=== PATIENT | female | born 1950 | race Caucasian/White ===

== ENCOUNTER → 2017-12-30 12:55 | Outpatient (CLI) | payer MEDICARE, OTHER, SELFPAY ==
--- NOTE | 2017-12-30 | DI.MG.S_ITS ---
BILATERAL DIGITAL SCREENING MAMMOGRAM 3D/2D WITH CAD: 12/30/2017 CLINICAL: Routine screening. Family history of breast cancer. Comparison is made to exams dated: 12/16/2016 mammogram, 12/16/2015 mammogram, and 12/13/2014 mammogram - [facility]. There are scattered fibroglandular elements in both breasts. Current study was also evaluated with a Computer Aided Detection (CAD) system. No significant masses, calcifications, or other findings are seen in either breast. There has been no significant interval change. IMPRESSION: NEGATIVE There is no mammographic evidence of malignancy. A 1 year screening mammogram is recommended. This exam was interpreted at Station ID: [id number]. NOTE: For mammograms, a report in lay terms will be sent to the patient. Approximately 15% of breast malignancies will not be visualized mammographically. In the management of a palpable breast mass, a negative mammogram must not discourage biopsy of a clinically suspicious lesion. Electronically Signed By: Ivy shannon/celena:12/30/2017 13:39:39 copy to: Stephon Gómez letter sent: Normal Exam ACR BI-RADS Category 1: Negative 3341F
== END ==
PROVIDERS: PCP Family Medicine; Visit Provider Family Medicine
DX: Z12.31 Encounter for screening mammogram for malignant neoplasm of breast (principal); Z80.3 Family history of malignant neoplasm of breast
CPT/HCPCS: 77063; 77067

== ENCOUNTER → 2018-01-23 09:00 | Outpatient (CLI) | payer MEDICARE, OTHER, SELFPAY ==
--- NOTE | 2018-01-23 09:02 | DI.US.S_ITS ---
PROCEDURE: US EXTREMITY NONVASC LOWER RT INDICATIONS: palpable mass right upper thigh TECHNIQUE: Real-time scanning was performed of the right proximal thigh, with image documentation. COMPARISON: None. FINDINGS: 1.1 x 0.4 x 1.7 cm subcutaneous, rounded avascular echogenic soft tissue mass present corresponding to the palpable abnormality. IMPRESSION: Solid subcutaneous echogenic mass within the soft tissues corresponding to the palpable abnormality which may represent a lipoma given the appearance but findings are nonspecific and differential would include both benign or malignant etiology. Recommend clinical correlation and followup. Dictated by: Reed DIMAS Interpreted: Galindo Tidwell MD on 01/23/2018 at 9:47 Approved by: Galindo Tidwell M.D. on 01/23/2018 at 15:16
== END ==
PROVIDERS: PCP Family Medicine; Visit Provider Family Medicine
DX: R22.41 Localized swelling, mass and lump, right lower limb (principal)
CPT/HCPCS: 76882

== ENCOUNTER → 2018-12-29 09:46 | Outpatient (CLI) | payer MEDICARE, OTHER, SELFPAY ==
[2018-12-29 11:03] LABS: HEMOLYSIS < 15 (0-50); Iron 117 ug/dL (37-170)
[2018-12-29 11:17] LABS: Percent Iron Saturation 40 % (15-50); Total Iron Binding Capacity 295 ug/dL (265-497); Transferrin 236 mg/dL (206-381)
[2018-12-29 11:18] LABS: Vitamin D 25 Hydroxy (D3) 31.9 ng/mL (30.0-100.0)
[2018-12-29 11:29] LABS: Cholesterol 233 mg/dL (140-199); Glucose 90 mg/dL (80-110); HDL Cholesterol 70 mg/dL (40-60); LDL Cholesterol Calculated 139 mg/dL (<100); Triglycerides 122 mg/dL (35-150)
== END ==
PROVIDERS: PCP Family Medicine; Visit Provider Family Medicine
DX: E55.9 Vitamin D deficiency, unspecified (principal); E61.1 Iron deficiency; Z13.1 Encounter for screening for diabetes mellitus; Z13.220 Encounter for screening for lipoid disorders
CPT/HCPCS: 36415; 80061; 82306; 82947; 83540; 83550

== ENCOUNTER → 2019-02-01 09:53 | Outpatient (CLI) | payer MEDICARE, OTHER, SELFPAY ==
--- NOTE | 2019-02-01 | DI.MG.S_ITS ---
BILATERAL DIGITAL SCREENING MAMMOGRAM 3D/2D WITH CAD: 02/01/2019 CLINICAL: Routine screening. Family history of breast cancer. Comparison is made to exams dated: 12/30/2017 mammogram, 12/16/2016 mammogram, and 12/16/2015 mammogram - [facility]. There are scattered fibroglandular elements in both breasts. Current study was also evaluated with a Computer Aided Detection (CAD) system. No significant masses, calcifications, or other findings are seen in either breast. There has been no significant interval change. IMPRESSION: NEGATIVE There is no mammographic evidence of malignancy. A 1 year screening mammogram is recommended. This exam was interpreted at Station ID: [id number]. NOTE: For mammograms, a report in lay terms will be sent to the patient. Approximately 15% of breast malignancies will not be visualized mammographically. In the management of a palpable breast mass, a negative mammogram must not discourage biopsy of a clinically suspicious lesion. Electronically Signed By: Ivy shannon/celena:02/01/2019 12:07:35 copy to: Stephon Gómez letter sent: Normal Exam ACR BI-RADS Category 1: Negative 3341F
== END ==
PROVIDERS: PCP Family Medicine; Visit Provider Family Medicine
DX: Z12.31 Encounter for screening mammogram for malignant neoplasm of breast (principal); Z80.3 Family history of malignant neoplasm of breast
CPT/HCPCS: 77063; 77067

== ENCOUNTER → 2020-07-03 08:25 | Outpatient (CLI) | payer MEDICARE, OTHER, SELFPAY ==
[2020-07-03 10:21] LABS: Cholesterol 237 mg/dL (140-199); Glucose 87 mg/dL (80-110); HDL Cholesterol 79 mg/dL (40-60); LDL Cholesterol Calculated 139 mg/dL (<100); Triglycerides 96 mg/dL (35-150)
== END ==
PROVIDERS: PCP Family Medicine; Referring Provider Family Medicine; Visit Provider Family Medicine
DX: E78.00 Pure hypercholesterolemia, unspecified (principal); Z13.1 Encounter for screening for diabetes mellitus
CPT/HCPCS: 36415; 80061; 82947

== ENCOUNTER → 2020-07-15 08:58 | Outpatient (CLI) | payer MEDICARE, OTHER, SELFPAY | PROVIDERS: PCP Family Medicine; Referring Provider Obstetrics & Gynecology; Visit Provider Obstetrics & Gynecology | DX: Z80.3 Family history of malignant neoplasm of breast (principal) | CPT/HCPCS: 36415 ==

== ENCOUNTER → 2020-08-14 16:23 | Outpatient (CLI) | payer MEDICARE, OTHER, SELFPAY ==
--- NOTE | 2020-08-14 16:25 | DI.MG.S_ITS ---
BILATERAL DIGITAL SCREENING MAMMOGRAM 3D/2D WITH CAD: 08/14/2020 CLINICAL: Routine screening. Family history of breast cancer. Comparison is made to exams dated: 02/01/2019 mammogram, 12/30/2017 mammogram, 12/16/2016 mammogram, and 12/16/2015 mammogram - [facility]. There are scattered fibroglandular elements in both breasts. Current study was also evaluated with a Computer Aided Detection (CAD) system. There are benign calcifications in both breasts. No significant masses, calcifications, or other findings are seen in either breast. There has been no significant interval change. IMPRESSION: BENIGN There is no mammographic evidence of malignancy. A 1 year screening mammogram is recommended. This exam was interpreted at Station ID: [id number]. NOTE: For mammograms, a report in lay terms will be sent to the patient. Approximately 15% of breast malignancies will not be visualized mammographically. In the management of a palpable breast mass, a negative mammogram must not discourage biopsy of a clinically suspicious lesion. Electronically Signed By: Martin heath/celena:08/14/2020 17:03:11 copy to: Stephon Gómez letter sent: Normal Exam ACR BI-RADS Category 2: Benign Finding(s) 3342F
== END ==
PROVIDERS: PCP Family Medicine; Referring Provider Family Medicine; Visit Provider Family Medicine
DX: Z12.31 Encounter for screening mammogram for malignant neoplasm of breast (principal); Z80.3 Family history of malignant neoplasm of breast
CPT/HCPCS: 77063; 77067

== ENCOUNTER → 2021-12-22 07:16 | Outpatient (CLI) | payer MEDICARE, OTHER, SELFPAY ==
[2021-12-22 08:15] LABS: Add Manual Diff / Slide Review NO; Basophils Absolute Auto 0 /uL (0-100); Basophils Percent Auto 0.8 % (0-2); Eosinophils Absolute Auto 200 /uL (0-450); Eosinophils Percent Auto 3.5 % (2-4); Hematocrit 38.9 % (36-46); Lymphocytes Absolute Auto 2000 /uL (1100-4500); Lymphocytes Percent Auto 36.7 % (25-40); Mean Corpuscular HGB Conc 33.5 % (30-36); Mean Corpuscular Hemoglobin 31.8 PG (26-34); Mean Corpuscular Volume 94.9 fL (80-100); Monocytes Absolute Auto 300 /uL (0-900); Monocytes Percent Auto 6.1 % (3-14); Neutrophils Absolute Auto 2800 /uL (1500-7000); Neutrophils Percent Auto 52.9 % (50-75); Platelet Count 314 X10^3/uL (150-400); Red Cell Distribution Width 13.8 % (11.6-14.8); White Blood Cell Count 5.4 X10^3/uL (4.5-11.0)
[2021-12-22 08:46] LABS: Alanine Aminotransferase 12 IU/L (<35); Albumin 4.3 g/dL (3.5-5.0); Albumin Globulin Ratio 1.8 (1.0-2.8); Alkaline Phosphatase 54 U/L (38-126); Aspartate Aminotransferase 24 IU/L (14-36); BUN Creatinine Ratio 21.6 (6-22); Bilirubin Total 1.1 mg/dL (0.2-1.3); Blood Urea Nitrogen 16 mg/dL (7-17); Calcium 9.7 mg/dL (8.4-10.2); Carbon Dioxide 31 mmol/L (22-32); Chloride 106 mmol/L (98-107); Cholesterol 230 mg/dL (140-199); Estimated Glomerular Filt Rate > 60 mL/min (>60); Globulin 2.4 g/dL (1.7-4.1); Glucose 82 mg/dL (80-110); HDL Cholesterol 99 mg/dL (40-60); HEMOLYSIS < 15 (0-50); LDL Cholesterol Calculated 115 mg/dL (<100); Potassium 4.7 mmol/L (3.4-5.1); Sodium 142 mmol/L (137-145); Total Protein 6.7 g/dL (6.3-8.2); Triglycerides 81 mg/dL (35-150)
[2021-12-22 08:58] LABS: Vitamin D 25 Hydroxy (D3) 44.8 ng/mL (30.0-100.0)
[2021-12-22 09:13] LABS: TSH w/ Reflex to FT4 3.59 uIU/mL (0.47-4.68)
[2021-12-22 09:29] LABS: Vitamin B12 853 pg/mL (239-931)
== END ==
PROVIDERS: PCP Family Medicine; Referring Provider Family Medicine; Visit Provider Family Medicine
DX: E78.5 Hyperlipidemia, unspecified (principal); M85.80 Other specified disorders of bone density and structure, unspecified site; E78.00 Pure hypercholesterolemia, unspecified
CPT/HCPCS: 36415; 80053; 80061; 82306; 82607; 84443; 85025

== ENCOUNTER → 2022-02-18 07:38 | Outpatient (CLI) | payer MEDICARE, OTHER, SELFPAY ==
--- NOTE | 2022-02-18 | DI.MG.S_ITS ---
BILATERAL DIGITAL SCREENING MAMMOGRAM 3D/2D WITH CAD: 02/18/2022 CLINICAL: Routine screening. Family history of breast cancer. Comparison is made to exams dated: 08/14/2020 mammogram, 02/01/2019 mammogram, and 12/30/2017 mammogram - [facility]. There are scattered fibroglandular elements in both breasts. Current study was also evaluated with a Computer Aided Detection (CAD) system. There is a possible developing an irregular equal density asymmetry with a spiculated margin and grouped fine calcifications in the left breast at 12 o'clock posterior depth. This is more prominent. No other significant masses, calcifications, or other findings are seen in either breast. IMPRESSION: INCOMPLETE: NEEDS ADDITIONAL IMAGING EVALUATION The possible developing irregular equal density asymmetry in the left breast is indeterminate. Additional views with possible ultrasound are recommended. Based on the Tyrer Cuzick model (a risk assessment model) the patient's lifetime risk is 7.1% and her 10 year risk is 5.3%. According to the ACR, ACS, and NCCN guidelines, an annual breast MRI exam along with mammogram is recommended if the patient's lifetime risk is 20% or greater. This exam was interpreted at Station ID: [id number]. NOTE: For mammograms, a report in lay terms will be sent to the patient. Approximately 15% of breast malignancies will not be visualized mammographically. In the management of a palpable breast mass, a negative mammogram must not discourage biopsy of a clinically suspicious lesion. Electronically Signed By: Kathrin smart/celena:02/18/2022 12:00:13 copy to: Stephon Gómez letter sent: Additional Imaging Needed ACR BI-RADS Category 0: Incomplete 3340F
== END ==
PROVIDERS: PCP Family Medicine; Referring Provider Family Medicine; Visit Provider Family Medicine
DX: Z12.31 Encounter for screening mammogram for malignant neoplasm of breast (principal); Z80.3 Family history of malignant neoplasm of breast
CPT/HCPCS: 77063; 77067

== ENCOUNTER → 2022-03-16 11:50 | Outpatient (CLI) | payer MEDICARE, OTHER, SELFPAY ==
--- NOTE | 2022-03-16 | DI.MG.S_ITS ---
UNILATERAL LEFT DIGITAL DIAGNOSTIC MAMMOGRAM 3D/2D WITH ADDITIONAL VIEWS: 03/16/2022 CLINICAL: Additional evaluation requested from prior study. Comparison is made to exams dated: 02/18/2022 mammogram, 08/14/2020 mammogram, 02/01/2019 mammogram, 12/30/2017 mammogram, and 12/27/2016 mammogram - [facility]. There are scattered fibroglandular elements in left breast. There is a possible asymmetry in the left breast at 12 o'clock posterior depth is not seen in additional views and is consistent with fibroglandular tissue. There also are loosely grouped punctate calcifications in the left breast at 12 o'clock middle depth which are stable since at least 2018. No other significant masses or calcifications are seen in the breast. IMPRESSION: BENIGN There is no mammographic evidence of malignancy. Asymmetry in the left breast at 12 o'clock posterior depth is consistent with fibroglandular tissue and is benign. Punctate calcifications in the left breast at 12 o'clock are long-term stable and benign. A 1 year screening mammogram is recommended. Exam findings were conveyed to the patient. Based on the Tyrer Cuzick model (a risk assessment model) the patient's lifetime risk is 7.1% and her 10 year risk is 5.3%. According to the ACR, ACS, and NCCN guidelines, an annual breast MRI exam along with mammogram is recommended if the patient's lifetime risk is 20% or greater. This exam was interpreted at Station ID: [id number]. NOTE: For mammograms, a report in lay terms will be sent to the patient. Approximately 15% of breast malignancies will not be visualized mammographically. In the management of a palpable breast mass, a negative mammogram must not discourage biopsy of a clinically suspicious lesion. Electronically Signed By: Martin Alvarado M.D. slc/:03/16/2022 12:30:13 copy to: Stephon Gómez letter sent: Normal Exam ACR BI-RADS Category 2: Benign Finding(s) 3342F
== END ==
PROVIDERS: PCP Family Medicine; Referring Provider Family Medicine; Visit Provider Family Medicine
DX: R92.1 Mammographic calcification found on diagnostic imaging of breast (principal); N64.89 Other specified disorders of breast
CPT/HCPCS: 77065; G0279

== ENCOUNTER → 2022-06-24 09:09 | Outpatient (CLI) | payer MEDICARE, OTHER, SELFPAY ==
[2022-06-24 13:28] LABS: COVID19 -Nasal RAPID Negative (Negative)
== END ==
PROVIDERS: PCP Family Medicine; Visit Provider Surgery
DX: Z20.822 Contact with and (suspected) exposure to COVID-19 (principal); Z01.812 Encounter for preprocedural laboratory examination
CPT/HCPCS: 87635; C9803

== ENCOUNTER 2022-06-25 06:36 | Day surgery (SDC) | payer MEDICARE, OTHER, SELFPAY ==
[2022-06-25 06:55] VITALS: BP 131/77; PULSE 75; RESP 16; TEMP 36.4; O2SAT 98; BMI 21.2
[2022-06-25] MEDS: LACTATED RINGERS 1,000 ML 84 ML IV (07:11)
--- NOTE | 2022-06-25 07:35 | PM.HP.1 ---
History of Present Illness History of Present Illness [place] [facility] [place]: Ms. Crouch presents today for a screening colonoscopy. Her last colonoscopy was probably about 6 years ago. It was here at [facility]. She said she they found polyps and recommended a 4 year follow-up. The records are not available for me to review at this time. She also states that she never heard back about the pathology of these polyps. She has no family history of colon cancer and denies constipation or bleeding. She does have ?diarrhea issues?. She is thinks that the diarrhea is mostly related to stress but sometimes foods and is fairly unpredictable. There will be times when months go by and she has no issues with diarrhea however when she is having a bad episode she will have diarrhea several times a week. This has been going on for years and her mother had this also. Patient History Medical History (Updated 06/25/22 @ 07:39 by Angeles Raya MD) Abnormal Pap smear of cervix Atypical squamous cell changes of undetermined significance (ASCUS) on cervical cytology with positive high risk human papilloma virus (HPV) (12/17/05) BCC (basal cell carcinoma), scalp/neck Chicken pox Colon polyps Eustachian tube dysfunction Generalized pain HPV (human papilloma virus) infection Hyperlipidemia Numbness of right foot Pelvic relaxation Rhinitis SCC (squamous cell carcinoma) Sigmoid diverticulitis Subcutaneous mass (01/20/18) Surgical History (Updated 03/28/18 @ 11:03 by Shannon Guzman) History of third molar tooth extraction History of tonsillectomy Status post tubal ligation Family & Social History Family History (Updated 03/28/18 @ 11:08 by Shannon Guzman) Mother Malignant neoplasm of female breast, unspecified laterality, unspecified site of breast Malignant melanoma Father No problems noted. Grandfather No problems noted. Grandfather No problems noted. Grandmother No problems noted. Sister No problems noted. Social History: household members family lives independently Yes caregiver/support person No Tobacco & Substance use: Smoking Status Never smoker alcohol intake current alcohol intake frequency a few times a month Substance Use Type does not use Meds Home Medications and Allergies Home Medications Medication Instructions Recorded Confirmed Type multivitamin 1 tab PO DAILY 03/07/18 02/16/22 History cyanocobalamin (vitamin B-12) PO 05/08/18 02/16/22 History ferrous sulfate [Iron (ferrous PO 05/08/18 02/16/22 History sulfate)] vit C-vit [id number]-3 PO 05/08/18 02/16/22 History [Ocuvite] salmon oil-omega-3 fatty acids PO 05/08/19 02/16/22 History CMP Estradiol vaginal cream See Rx Instructions .Route 04/15/22 Rx .COMPLEX #30 grams sodium,potassium,mag sulfates 17.5 See Rx Instructions PO .COMPLEX 04/29/22 Rx gram-3.13 gram-1.6 gram oral soln #354 mL (Suprep Bowel Prep Kit) Allergies Allergy/AdvReac Type Severity Reaction Status Date / Time No Known Drug Allergies Allergy Verified 06/25/22 06:52 Exam Vital Signs (past 8 hours): - 06/25/22 06:55 Temperature 97.6 F Pulse Rate 75 Respiratory Rate 16 Blood Pressure 131/77 Pulse Oximetry 98 Oxygen Delivery Method Room Air Oxygen Delivery Method Room Air Const General: cooperative, healthy appearing and comfortable HENMT Head: normal to inspection Resp Effort & Inspection: normal respiratory effort and able to speak in complete sentences Cardio Pulses: radial pulses present GI Palpation: soft and No tender Extrem Other: Very long but healthy looking and normally moving limbs Assessment & Plan Assessment and plan (1) Screen for colon cancer: Status: Acute Assessment & Plan narrative: I discussed the risks benefits and alternatives of screening colonoscopy with Ms. Milton at length. She had some questions about the fecal occult blood test and about polyps and follow-up. Her questions were answered and she understands the risks and benefits of colonoscopy and would like to move forward. She did ask in addition that if as happened previously she has diarrhea for weeks after this procedure what medications she could take for that. I discussed fiber and the use of Imodium as needed but not as a daily medication. I advised her to call the office with any questions or concerns after the procedure as well. Time Spent With Patient Critical Care time: I spent a total of [] minutes of critical care time on this patient's care today; this time is exclusive of procedural time.
--- NOTE | 2022-06-25 08:24 | PM.OP.1 ---
Procedure & Clinicians Procedure: Colonoscopy Same procedure as scheduled: Yes Indications: Screening Surgeon: Angeles Raya Click Yes if Unassisted: Yes Anesthesia Type: MAC +/- Operative Notes Findings: Scattered few diverticula no polyps seen. Specimen(s): none sent Procedure in detail: Patient was taken to the endoscopy suite and placed in left lateral decubitus position time-out was performed with the help of anesthesia provider conscious sedation was induced digital rectal exam was performed there were some external skin tags noted on the rectal exam. The colonoscope was advanced through to the cecum and withdrawn. The withdrawal time was 20 minutes. There was an issue with the suction becoming clogged during the case that added about 10 minutes to that withdrawal time. This was resolved the prep was [employer] bowel prep 2 there were some particulates and there was a lot of watery content within the colon, consistent with the patient's history of diarrhea. Complications: none Post-operative Condition: stable Disposition: PACU Plan for aftercare: Follow-up colonoscopy 10 years unless there is a change in her family history or in any symptoms.
[2022-06-25 08:26] VITALS: BP 101/59; PULSE 68; RESP 16; TEMP 36.4; O2SAT 100
[2022-06-25 08:34] VITALS: BP 94/65; PULSE 68; RESP 16; O2SAT 99
[2022-06-25 08:42] VITALS: BP 105/66; PULSE 68; RESP 16; TEMP 36.8; O2SAT 98
== END 2022-06-25 09:13 | disposition home or self-care (01) ==
PROVIDERS: PCP Family Medicine; Referring Provider Surgery; Visit Provider Surgery
PROC: 0DJD8ZZ Inspection of Lower Intestinal Tract, Via Natural or Artificial Opening Endoscopic (ICD-10-PCS; CPT 45378; principal; 2022-06-25 07:45)
DX: Z12.11 Encounter for screening for malignant neoplasm of colon (principal); K57.30 Diverticulosis of large intestine without perforation or abscess without bleeding
CPT/HCPCS: G0121; 45378; J2704

== ENCOUNTER → 2022-12-09 10:31 | Outpatient (CLI) | payer MEDICARE, OTHER, SELFPAY ==
--- NOTE | 2022-12-09 10:32 | DI.RAD.S_ITS ---
PROCEDURE: XR CHEST 2V INDICATIONS: cough 10 days, chills, mele travel adventitious LS LL TECHNIQUE: 2 views of the chest were acquired. COMPARISON: None. FINDINGS: Surgical changes and devices: None. Lungs and pleura: Focal airspace opacities are present at the posterior lung base visualized on the lateral view. No pleural effusion or pneumothorax. Mediastinum: Mediastinal contours are normal. Heart size is normal. Bones and chest wall: No suspicious bony abnormalities. Soft tissues appear unremarkable. IMPRESSION: Basilar pulmonary radiopacities suspicious for aspiration/infection. Follow-up to resolution recommended. Dictated by: Ivy Hernandez M.D. on 12/09/2022 at 11:11 Approved by: Ivy Hernandez M.D. on 12/09/2022 at 11:12
== END ==
PROVIDERS: PCP Family Medicine; Referring Provider Student in an Organized Health Care Education/Training Program; Visit Provider Student in an Organized Health Care Education/Training Program
DX: R05.8 Other specified cough (principal); R52 Pain, unspecified; R68.83 Chills (without fever)
CPT/HCPCS: 71046

== ENCOUNTER → 2022-12-24 13:09 | Outpatient (CLI) | payer MEDICARE, OTHER, SELFPAY ==
--- NOTE | 2022-12-24 13:10 | DI.RAD.S_ITS ---
PROCEDURE: XR CHEST 2V INDICATIONS: Pneumonia follow up TECHNIQUE: 2 views of the chest were acquired. COMPARISON: [facility], CR, XR CHEST 2V, 12/09/2022, 10:35. FINDINGS: Surgical changes and devices: None. Lungs and pleura: Lungs are clear. No pleural effusions or pneumothorax. Mediastinum: Mildly tortuous thoracic aorta is seen. Heart size is mildly enlarged. Bones and chest wall: No suspicious bony abnormalities. Soft tissues appear unremarkable. IMPRESSION: No acute cardiopulmonary pathology. Previously noted bibasilar pulmonary opacities are no longer seen suggestive of interval resolution. Dictated by: Efrain Ramos M.D. on 12/24/2022 at 15:51 Approved by: Efrain Ramos M.D. on 12/24/2022 at 15:51
== END ==
PROVIDERS: PCP Family Medicine; Referring Provider Physician Assistant; Visit Provider Physician Assistant
DX: H66.91 Otitis media, unspecified, right ear (principal); H74.8X9 Other specified disorders of middle ear and mastoid, unspecified ear; J18.9 Pneumonia, unspecified organism
CPT/HCPCS: 71046

== ENCOUNTER → 2023-03-14 12:51 | Outpatient (CLI) | payer MEDICARE, OTHER, SELFPAY ==
--- NOTE | 2023-03-14 | DI.MG.S_ITS ---
BILATERAL DIGITAL SCREENING MAMMOGRAM 3D/2D WITH CAD: 03/14/2023 CLINICAL: Routine screening. Family history of breast cancer. Comparison is made to exams dated: 02/18/2022 mammogram, 08/14/2020 mammogram, and 02/01/2019 mammogram - [facility]. There are scattered areas of fibroglandular density in both breasts (category b / 25%-50% glandular tissue). Current study was also evaluated with a Computer Aided Detection (CAD) system. No significant masses, calcifications, or other findings are seen in either breast. There has been no significant interval change. IMPRESSION: NEGATIVE There is no mammographic evidence of malignancy. A 1 year screening mammogram is recommended. Based on the Tyrer Cuzick model (a risk assessment model) the patient's lifetime risk is 6.7% and her 10 year risk is 5.5%. According to the ACR, ACS, and NCCN guidelines, an annual breast MRI exam along with mammogram is recommended if the patient's lifetime risk is 20% or greater. This exam was interpreted at Station ID: [id number]. NOTE: For mammograms, a report in lay terms will be sent to the patient. Approximately 15% of breast malignancies will not be visualized mammographically. In the management of a palpable breast mass, a negative mammogram must not discourage biopsy of a clinically suspicious lesion. Electronically Signed By: Ivy shannon/celena:03/14/2023 15:05:38 copy to: Stephon Gómez letter sent: Normal Exam ACR BI-RADS Category 1: Negative 3341F
== END ==
PROVIDERS: PCP Family Medicine; Referring Provider Family Medicine; Visit Provider Family Medicine
DX: Z12.31 Encounter for screening mammogram for malignant neoplasm of breast (principal); Z80.3 Family history of malignant neoplasm of breast
CPT/HCPCS: 77063; 77067

== ENCOUNTER → 2023-05-03 07:48 | Outpatient (CLI) | payer MEDICARE, OTHER, SELFPAY ==
[2023-05-03 10:28] LABS: Cholesterol 248 mg/dL (140-199); HDL Cholesterol 64 mg/dL (40-60); LDL Cholesterol Calculated 165 mg/dL (<100); Triglycerides 93 mg/dL (35-150)
== END ==
PROVIDERS: PCP Family Medicine; Referring Provider Family Medicine; Visit Provider Family Medicine
DX: E78.00 Pure hypercholesterolemia, unspecified (principal)
CPT/HCPCS: 36415; 80061

== ENCOUNTER → 2023-05-27 11:17 | Outpatient (CLI) | payer MEDICARE, OTHER, SELFPAY ==
[2023-05-27 12:58] LABS: Add Manual Diff / Slide Review NO; Basophils Absolute Auto 100 /uL (0-100); Eosinophils Absolute Auto 200 /uL (0-450); Eosinophils Percent Auto 2.5 % (2-4); Hematocrit 37.2 % (36-46); Hemoglobin 12.6 g/dL (12.0-16.0); Lymphocytes Absolute Auto 1800 /uL (1100-4500); Mean Corpuscular Hemoglobin 31.4 PG (26-34); Mean Corpuscular Volume 92.3 fL (80-100); Monocytes Absolute Auto 400 /uL (0-900); Monocytes Percent Auto 5.6 % (3-14); Neutrophils Absolute Auto 4300 /uL (1500-7000); Neutrophils Percent Auto 63.9 % (50-75); Platelet Count 327 X10^3/uL (150-400); Red Blood Cell Count 4.03 X10^6/uL (4.0-5.2); Red Cell Distribution Width 13.2 % (11.6-14.8); White Blood Cell Count 6.8 X10^3/uL (4.5-11.0)
[2023-05-27 13:06] LABS: Alanine Aminotransferase 15 IU/L (<35); Albumin 4.3 g/dL (3.5-5.0); Albumin Globulin Ratio 1.5 (1.0-2.8); Alkaline Phosphatase 79 U/L (38-126); Aspartate Aminotransferase 26 IU/L (14-36); BUN Creatinine Ratio 31.3 (6-22); Bilirubin Total 0.9 mg/dL (0.2-1.3); Blood Urea Nitrogen 21 mg/dL (7-17); Calcium 9.7 mg/dL (8.4-10.2); Carbon Dioxide 29 mmol/L (22-32); Chloride 103 mmol/L (98-107); Estimated Glomerular Filt Rate > 60 mL/min (>60); Globulin 2.8 g/dL (1.7-4.1); Glucose 116 mg/dL (80-110); HEMOLYSIS < 15 (0-50); Potassium 4.1 mmol/L (3.4-5.1); Sodium 139 mmol/L (137-145); Total Protein 7.1 g/dL (6.3-8.2)
[2023-05-27 13:52] LABS: TSH w/ Reflex to FT4 2.72 uIU/mL (0.47-4.68)
[2023-05-27 13:54] LABS: Vitamin B12 902 pg/mL (239-931)
[2023-05-27 15:26] LABS: Vitamin D 25 Hydroxy (D3) 44.6 ng/mL (30.0-100.0)
== END ==
PROVIDERS: PCP Family Medicine; Referring Provider Family Medicine; Visit Provider Family Medicine
DX: Z13.9 Encounter for screening, unspecified (principal)
CPT/HCPCS: 36415; 80053; 82306; 82607; 84443; 85025

== ENCOUNTER → 2024-03-28 11:35 | Outpatient (CLI) | payer MEDICARE, OTHER, SELFPAY ==
--- NOTE | 2024-03-28 11:37 | DI.MG.S_ITS ---
BILATERAL DIGITAL SCREENING MAMMOGRAM 3D/2D WITH CAD: 03/28/2024 CLINICAL: Routine screening. Family history of breast cancer. Comparison is made to exams dated: 03/14/2023 mammogram, 02/18/2022 mammogram, and 08/14/2020 mammogram - [facility]. There are scattered areas of fibroglandular density in both breasts (category b / 25%-50% glandular tissue). Current study was also evaluated with a Computer Aided Detection (CAD) system. There are benign calcifications in the left breast. No significant masses, calcifications, or other findings are seen in either breast. There has been no significant interval change. IMPRESSION: BENIGN There is no mammographic evidence of malignancy. A 1 year screening mammogram is recommended. Based on the Tyrer Cuzick model (a risk assessment model) the patient's lifetime risk is 6.3% and her 10 year risk is 5.7%. According to the ACR, ACS, and NCCN guidelines, an annual breast MRI exam along with mammogram is recommended if the patient's lifetime risk is 20% or greater. This exam was interpreted at Station ID: [id number]. NOTE: For mammograms, a report in lay terms will be sent to the patient. Approximately 15% of breast malignancies will not be visualized mammographically. In the management of a palpable breast mass, a negative mammogram must not discourage biopsy of a clinically suspicious lesion. Electronically Signed By: Kathrin smart/celena:03/28/2024 17:30:41 copy to: Stephon Gómez letter sent: Normal Exam ACR BI-RADS Category 2: Benign Finding(s) 3342F
== END ==
LOC: MAMMO 11:37
PROVIDERS: PCP Family Medicine; Referring Provider Family Medicine; Visit Provider Family Medicine
DX: Z12.31 Encounter for screening mammogram for malignant neoplasm of breast (principal); Z80.3 Family history of malignant neoplasm of breast; R92.323 Mammographic fibroglandular density, bilateral breasts
CPT/HCPCS: 77063; 77067

== ENCOUNTER → 2024-06-19 06:58 | Outpatient (CLI) | payer MEDICARE, OTHER, SELFPAY ==
[2024-06-19 07:43] LABS: Add Manual Diff / Slide Review NO; Basophils Absolute Auto 0 /uL (0-100); Basophils Percent Auto 0.4 % (0-2); Eosinophils Absolute Auto 200 /uL (0-450); Eosinophils Percent Auto 3.1 % (2-4); Hematocrit 41.9 % (36-46); Hemoglobin 14.1 g/dL (12.0-16.0); Lymphocytes Absolute Auto 1500 /uL (1100-4500); Lymphocytes Percent Auto 20.4 % (25-40); Mean Corpuscular HGB Conc 33.6 % (30-36); Mean Corpuscular Hemoglobin 31.5 PG (26-34); Mean Corpuscular Volume 93.8 fL (80-100); Monocytes Absolute Auto 500 /uL (0-900); Monocytes Percent Auto 7.4 % (3-14); Neutrophils Absolute Auto 4900 /uL (1500-7000); Neutrophils Percent Auto 68.7 % (50-75); Platelet Count 347 X10^3/uL (150-400); Red Blood Cell Count 4.46 X10^6/uL (4.0-5.2); Red Cell Distribution Width 13.6 % (11.6-14.8); White Blood Cell Count 7.2 X10^3/uL (4.5-11.0)
[2024-06-19 07:49] LABS: Hemoglobin A1C% w Est Avg Glu 5.4 % (4.0-6.0)
[2024-06-19 08:00] LABS: Alanine Aminotransferase 13 IU/L (<35); Albumin 4.2 g/dL (3.5-5.0); Albumin Globulin Ratio 1.4 (1.0-2.8); Alkaline Phosphatase 79 U/L (38-126); Aspartate Aminotransferase 27 IU/L (14-36); BUN Creatinine Ratio 22.2 (6-22); Bilirubin Total 1.3 mg/dL (0.2-1.3); Blood Urea Nitrogen 16 mg/dL (7-17); Calcium 9.6 mg/dL (8.4-10.2); Carbon Dioxide 28 mmol/L (22-32); Chloride 105 mmol/L (98-107); Cholesterol 269 mg/dL (140-199); Estimated Glomerular Filt Rate > 60 mL/min (>60); Globulin 3.1 g/dL (1.7-4.1); Glucose 90 mg/dL (80-110); HDL Cholesterol 66 mg/dL (40-60); HEMOLYSIS < 15 (0-50); LDL Cholesterol Calculated 173 mg/dL (<100); Potassium 4.1 mmol/L (3.4-5.1); Sodium 139 mmol/L (137-145); Total Protein 7.3 g/dL (6.3-8.2); Triglycerides 149 mg/dL (35-150)
[2024-06-19 08:03] LABS: High Sensitivity CRP - Cardiac 1.5 mg/L (1.0-3.0)
== END ==
PROVIDERS: PCP Family Medicine; Referring Provider Family Medicine; Visit Provider Family Medicine
DX: E78.00 Pure hypercholesterolemia, unspecified (principal); R73.9 Hyperglycemia, unspecified; M85.80 Other specified disorders of bone density and structure, unspecified site; E88.810 Metabolic syndrome; E66.9 Obesity, unspecified; Z80.9 Family history of malignant neoplasm, unspecified; M85.89 Other specified disorders of bone density and structure, multiple sites; R22.9 Localized swelling, mass and lump, unspecified; G62.9 Polyneuropathy, unspecified
CPT/HCPCS: 36415; 80053; 80061; 83036; 83525; 85025; 86140

== ENCOUNTER → 2025-06-10 09:40 | Outpatient (CLI) | payer MEDICARE, OTHER, SELFPAY ==
[2025-06-10 11:11] LABS: Hemoglobin A1C% w Est Avg Glu 5.5 % (4.0-6.0)
[2025-06-10 11:23] LABS: Alanine Aminotransferase 14 IU/L (<35); Albumin 4.6 g/dL (3.5-5.0); Albumin Globulin Ratio 1.6 (1.0-2.8); Alkaline Phosphatase 82 U/L (38-126); Blood Urea Nitrogen 18 mg/dL (7-17); Calcium 9.8 mg/dL (8.4-10.2); Carbon Dioxide 27 mmol/L (22-32); Chloride 103 mmol/L (98-107); Cholesterol 298 mg/dL (140-199); Estimated Glomerular Filt Rate > 60 mL/min (>60); Globulin 2.9 g/dL (1.7-4.1); Glucose 90 mg/dL (70-99); HDL Cholesterol 79 mg/dL (40-60); HEMOLYSIS < 15 (0-50); Potassium 4.7 mmol/L (3.4-5.1); Sodium 138 mmol/L (137-145); Total Protein 7.5 g/dL (6.3-8.2); Triglycerides 139 mg/dL (35-150)
[2025-06-10 11:52] LABS: TSH w/ Reflex to FT4 1.78 uIU/mL (0.47-4.68)
[2025-06-10 11:58] LABS: Ferritin 119 ng/mL (11-264)
[2025-06-11 04:08] LABS: CRP, High Sensitivity 0.91 mg/L (0.00-3.00)
== END ==
PROVIDERS: PCP Family Medicine; Referring Provider Family Medicine; Visit Provider Family Medicine
DX: M81.0 Age-related osteoporosis without current pathological fracture (principal); E61.1 Iron deficiency; E78.00 Pure hypercholesterolemia, unspecified
CPT/HCPCS: 36415; 80053; 80061; 82728; 83036; 84443; 86140

== ENCOUNTER → 2025-06-12 10:06 | Outpatient (CLI) | payer MEDICARE, OTHER, SELFPAY ==
--- NOTE | 2025-06-12 10:07 | DI.RAD.S_ITS ---
PROCEDURE: XR DEXA AXIAL SKELETON INDICATIONS: interval 2014 COMPARISON: [facility], , DEXA AXIAL SKELETON, 12/30/2014, 10:48. FINDINGS: Lumbar Spine: Bone mineral density 0.956 g/cm2, T score -0.8, normal, change from previous-3.1%. Left Femoral Neck: Bone mineral density 0.678 g/cm2, T score -1.5, osteopenia, change from previous-7.9%. Left Hip: Bone mineral density 0.880 g/cm2, T score -0.5, normal, change from previous-0.5%. Fracture Risk Calculation (when applicable): 10-year fracture risk of a major osteoporotic fracture 10 percent and of a hip fracture 2.3 percent. (T score greater or equal to -1.0 to: NORMAL) (T score from -1.1 to -2.4: OSTEOPENIA) (T score less than or equal to -2.5: OSTEOPOROSIS) IMPRESSION: Osteopenia elevates the patient's 10 year fracture risk as described. Decrease in lumbar spine and left femoral neck mineralization compared to the prior exam. Follow-up guidelines as follows: Osteoporosis: Consider a repeat DEXA and Vertebral Fracture Assessment (VFA) exam in 2 years or sooner if medically necessary, to reassess this patient's status. Osteopenia: Consider a repeat DEXA in 2-3 years to reassess this patient's status, or if there is a new clinical indication. Normal: Consider a repeat DEXA in 5 years or sooner, or if there is a new clinical indication. All treatment decisions require clinical judgment and consideration of individual patient factors, including patient preferences, comorbidities, previous drug use, risk factors not captured in the FRAX model (e.g., frailty, falls, vitamin D deficiency, increased bone turnover, interval significant decline in bone density ) and possible under- or over-estimation of fracture risk by FRAX. In addition, the NOF Guide recommends that FDA-approved medical therapies be considered in postmenopausal women and men age >= 50 years with a: * Hip or vertebral (clinical or morphometric) fracture * T-score of <=-2.5 at the spine or hip * Ten-year fracture probability by FRAX of >= 3% for hip fracture or >=20% for major osteoporotic fracture. Dictated by: Kathrin Lacy M.D. on 06/12/2025 at 12:00 Approved by: Kathrin Lacy M.D. on 06/12/2025 at 12:01
== END ==
LOC: RAD 10:07
PROVIDERS: PCP Family Medicine; Referring Provider Family Medicine; Visit Provider Family Medicine
DX: M81.0 Age-related osteoporosis without current pathological fracture (principal); E78.00 Pure hypercholesterolemia, unspecified; E61.1 Iron deficiency
CPT/HCPCS: 77080